=== PATIENT | female | born 1930 | race Caucasian/White ===

== ENCOUNTER 2016-05-17 12:19 | Day surgery (SDC) | payer MEDICARE, BC, MEDICAID ==
[~2016-05-17] VITALS: Ht 160 cm; Wt 53.6 kg
[~2016-05-17 12:19] MED LIST: ACETAMINOPHEN500 M1 PO; COUMADIN2 MG PO; HYDROXYZINE HCL10 MG PO; K-DUR20 MEQ PO; LASIX40 MG PO; METOPROLOL TAR100 M1 PO; MIACALCIN NASA3.7 ML NASAL; NORVASC2.5 MG PO; PACERONE200 MG PO; PRAVACHOL20 MG PO; PRILOSEC20 MG PO; PROBIOTIC1 EAC1 PO; REMERON15 MG PO; ROCALTROL0.25 MCG PO; SYNTHROID25 MCG PO; ULTRAM50 MG PO; ZYLOPRIM100 MG PO
[2016-05-17 13:07] LABS: BASOPHILS 0.2 % (0.0-2.0); EOSINOPHILS 1.5 % (0-7); HEMATOCRIT 38.8 % (36.0-48.0); HEMOGLOBIN 12.8 g/dL (12-16); IMMATURE GRANULOCYTES 1.1 % (0-5); MCH 32.8 pg (26.0-34.0); MCV 99.5 fL (80.0-100.0); MEAN PLATELET VOLUME 10.5 fL (7.4-10.4); MONOCYTES 7.4 % (2-11); NEUTROPHILS 75.8 % (40-80); RDW 14.5 % (11.5-14.5)
[2016-05-17 13:13] LABS: PLATELET COUNT 250 10x3/uL (130-400)
[2016-05-17 13:22] LABS: ANION GAP 12.3 mmol/L (8-16); CALCIUM 9.4 mg/dL (8.5-10.1); CARBON DIOXIDE 27.3 mmol/L (21.0-32.0); CREATININE - SERUM 2.5 mg/dL (0.6-1.3); POTASSIUM - SERUM 4.6 mmol/L (3.5-5.1)
[2016-05-17 14:43] VITALS: Ht 160 cm; Wt 53.6 kg
--- NOTE | 2016-05-17 16:38 | NUR ---
1610 DILATED ESOPHAGUS 54 SUDANESE TIMES 1 MINUTE.
--- NOTE | 2016-05-18 18:05 | OP ---
PATIENT NAME: ODETTE SLOAN V MEDICAL RECORD: [id number] [facility] ADMISS[facility] DATE: SURGEON: LYSSA HERRING MD DATE OF OPERATION: 05/17/2016 PROCEDURE: EGD with biopsy and esophageal balloon dilatation. REFERRING PHYSICIAN: Dasia Cano MD. INDICATIONS: Ms. Sloan is a delightful 86-year-old woman who has had symptoms of dysphagia, heartburn, epigastric pain, nausea, as well as some weight loss. She presents for outpatient EGD. PREMEDICATIONS: Total IV anesthesia (total IV anesthesia, history of chronic kidney disease) and propofol 100 mg. INSTRUMENT: Olympus video gastroscope and esophageal balloon dilator 54 Tongan. PROCEDURE AND FINDINGS: After receiving informed consent, Ms. Sloan's posterior pharynx was anesthetized with Cetacaine spray. She was placed in left lateral decubitus position and sedated as per anesthesia. After achieving an adequate level of sedation, gastroscope was introduced per orally and advanced to the duodenum without difficulty. In the distal third of the esophagus, just proximal to the GE junction, was a nonobstructing Schatzki's ring through which the gastroscope passed easily. A small hiatal hernia is present. Gastric mucosa was notable for mild prepyloric and antral erythema with a few prepyloric erosions. Antral biopsies were obtained to rule out Helicobacter pylori. Stomach had good peristaltic activity. There were no lesions seen along the incisura, cardia, fundus, or in the body of the stomach. Pylorus was patent and competent. Duodenal mucosa was without erythema or ulcers, appeared normal through the second portion. Biopsies were obtained from the second portion of duodenum to rule out celiac disease. The gastroscope was then withdrawn to the stomach. Esophageal balloon dilator was then passed through the gastroscope and positioned midway across the distal third of the esophagus insulated to a 54-Tongan size, held in place on the appropriate PSI for 60 seconds, then deflated with good results. The balloon and gastroscope were then withdrawn. Ms. Sloan tolerated the procedure well, no immediate complications. ASSESSMENT: 1. Distal esophageal ring, status post balloon dilatation. 2. Small hiatal hernia. 3. Mild erosive gastritis. RECOMMENDATIONS: 1. Avoid nonsteroidal anti-inflammatory drugs. 2. Continue omeprazole 20 mg p.o. b.i.d. 3. If dysphagia persists, recommend barium swallow, possible video fluoroscopic swallowing study for further evaluation. TRANSINT:[id number] Voice Confirmation ID: [id number] DOCUMENT ID: [id number] OPERATIVE REPORT [id number] ODETTE SLOAN TERRI MD at 1805 CC: DASIA CANO MD [phone] DICTATION DATE: 05/17/16 1640 BEATER BOSS: 05/18/16 0013 [facility] 05/17/16 [id number] [place] [address]
== END 2016-05-17 18:05 | disposition home or self-care (01) ==
LOC: D.OPS 12:19
PROVIDERS: Anesthesiology
DX: K22.2 Esophageal obstruction (principal); K44.9 Diaphragmatic hernia without obstruction or gangrene; K29.00 Acute gastritis without bleeding; N18.9 Chronic kidney disease, unspecified